=== PATIENT | male | born 1960 | race Caucasian/White ===

== ENCOUNTER → 2021-06-22 | Outpatient (CLI) | payer OTHER | LOC: MAMMO 10:25 → RAD 10:25 → MAMMO 12:15 | DX: S62.91XA Unspecified fracture of right hand, initial encounter for closed fracture (principal); Z98.890 Other specified postprocedural states ==

== ENCOUNTER → 2021-08-05 | Outpatient (CLI) | payer OTHER | LOC: LAB 07:00 | DX: M81.0 Age-related osteoporosis without current pathological fracture (principal) ==